=== PATIENT | male | born 1985 | race Caucasian/White ===

== ENCOUNTER 2018-02-28 21:25 | Emergency (ER) | payer SELFPAY ==
[~2018-02-28] VITALS: Wt 88.1 kg
[2018-02-28] MEDS ORDERED: morphine 4 MG/ML VIAL IV STA (21:58)
[2018-02-28] MEDS ORDERED: SOD CHLORIDE 0.9% 1,000 ML IV STA (21:58)
[2018-02-28] MEDS ORDERED: ONDANSETRON 4 MG INJ IV STA (21:58)
[2018-02-28] MEDS ORDERED: IOHEXOL 300MG/ML 150 ML BTL ONE (23:03)
[2018-02-28] MEDS ORDERED: SOD CHLORIDE 0.9% 100 ML ONE (23:03)
[2018-02-28] MEDS ORDERED: HYDR-4011 PO (23:40)
[2018-02-28] MEDS ORDERED: FAMO-96 PO (23:40)
--- NOTE | 2018-02-28 23:45 | ERD ---
ER Documentation Chief Complaint Chief Complaint RLQ PAIN X'S 3 DAYS HPI 32-year-old male presenting with right lower quadrant pain times 3 days. Patient had vomiting. No fevers. No medical problems.. Denies chest pain or shortness of breath. Has had no dysuria hematuria. Has never had abdominal pain like this before. No sick contacts. ROS All systems reviewed and are negative except as per history of present illness. 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 There are no rales, wheezes or r honchi. HEART: Regular rate and rhythm. No murmurs, clicks, rubs or gallops. No S3 or S4. ABDOMEN: Normal active bowel sounds. No distention. Mild to the right lower quadrant with no rebound tenderness. No organomegaly. : No erythema or tenderness of the testicles. No swelling. No masses felt with scrotal sac. Result Diagram: 02/28/18221402/28/182214 Results 24 hrs Laboratory Tests Test 02/28/18 22:15 White Blood Count 8.3 10^3/ul Red Blood Count 5.14 10^6/ul Hemoglobin 16.0 g/dl Hematocrit 47.5 % Mean Corpuscular Volume 92.4 fl Mean Corpuscular Hemoglobin 31.1 pg Mean Corpuscular Hemoglobin Concent 33.7 g/dl Red Cell Distribution Width 11.7 % Platelet Count 261 10^3/UL Mean Platelet Volume 10.2 fl Immature Granulocytes % 0.100 % Neutrophils % 55.9 % Lymphocytes % 30.2 % Monocytes % 9.8 % Eosinophils % 3.5 % Basophils % 0.5 % Nucleated Red Blood Cells % 0.0 /100WBC Immature Granulocytes # 0.010 10^3/ul Neutrophils # 4.6 10^3/ul Lymphocytes # 2.5 10^3/ul Monocytes # 0.8 10^3/ul Eosinophils # 0.3 10^3/ul Basophils # 0.0 10^3/ul Nucleated Red Blood Cells # 0.0 10^3/ul Urine Color YELLOW Urine Clarity CLEAR Urine pH 5.0 Urine Specific [place] 1.026 Urine Ketones NEGATIVE mg/dL Urine Nitrite NEGATIVE mg/dL Urine Bilirubin NEGATIVE mg/dL Urine Urobilinogen NEGATIVE mg/dL Urine Leukocyte Esterase TRACE Arlyn/ul Urine Microscopic RBC 0 /HPF Urine Microscopic WBC 1 /HPF Urine Mucus FEW /HPF Urine Hemoglobin NEGATIVE mg/dL Urine Glucose NEGATIVE mg/dL Urine Total Protein NEGATIVE mg/dl Sodium Level 142 mmol/L Potassium Level 4.0 mmol/L Chloride Level 103 mmol/L Carbon Dioxide Level 30 mmol/L Anion Gap 9 Blood Urea Nitrogen 14 mg/dl Creatinine 0.88 mg/dl Est Glomerular Filtrat Rate mL/min > 60 mL/min Glucose Level 118 mg/dl Calcium Level 10.1 mg/dl Total Bilirubin 0.2 mg/dl Direct Bilirubin 0.00 mg/dl Indirect Bilirubin 0.2 mg/dl Aspartate Amino Transf (AST/SGOT) 36 IU/L Alanine Aminotransferase (ALT/SGPT) 55 IU/L Alkaline Phosphatase 93 IU/L Total Protein 8.7 g/dl Albumin 4.9 g/dl Globulin 3.80 g/dl Albumin/Globulin Ratio 1.28 Lipase 89 U/L Current Medications Medications Dose Sig/Arlene Start Time Status Last (Trade) Ordered Route PRN Stop Time Admin Dose Reason Admin Sodium 1,000 ml @ Q1H STAT 02/28/18 DC 02/28/18 Chloride 1,000 mls/hr IV 21:58 22:15 02/28/18 22:57 Morphine 4 mg ONCE STAT 02/28/18 DC 02/28/18 Sulfate IV 21:58 22:15 (morphine) 02/28/18 21:59 Ondansetron 4 mg ONCE STAT 02/28/18 DC 02/28/18 HCl (Zofran IV 21:58 22:15 Inj) 02/28/18 21:59 Sodium 100 ml @ ud STK-MED 02/28/18 DC 02/28/18 Chloride ONCE .ROUTE 23:03 23:28 02/28/18 23:04 Iohexol 150 ml STK-MED 02/28/18 DC 02/28/18 (Omnipaque ONCE .ROUTE 23:03 23:28 300mg/ ml) 02/28/18 23:04 Procedures/MDM DIAGNOSTIC IMAGING REPORT Patient: RICKI SANDERSON : 1985 Age: 32 Sex: M MR #: [id number] DOS: 02/28/18 2158 Ordering MD: LATS CEJA PA-C Location: [facility] Room/Bed: PROCEDURE: CT Abdomen and Pelvis with IV contrast. CLINICAL INDICATION: Pain. TECHNIQUE: CT scan of the abdomen and pelvis was performed on a multidetector slice CT scanner. 100 cc of Omnipaque 300 intravenous contrast material was utilized. Sagittal and coronal reformatted images were obtained from the axial source images. Images were reviewed on a high-resolution PACS workstation. Exam CTDlvol = 14 mGy and DLP = 951 Gy-cm. One of the following 3 dose reduction techniques were used: Automated exposure control; adjustment of the mA and/or kV according to patient size; or use of iterative reconstruction technique. DICOM images are available. COMPARISON: None. FINDINGS: There is no bowel obstruction or ileus. The appendix is visualized and normal in size and appearance without evidence for appendicitis. There is a single sigmoid colon diverticulum without evidence for diverticulitis. There is no free fluid. The liver is enlarged measuring 18.6 cm length and mildly hypodense/fatty.. No intrahepatic lesions are identified. The gallbladder is normal in appearance. There is no definite biliary ductal dilation. Pancreas is normal in appearance. The spleen is unremarkable.. There are no adrenal masses. The aorta is normal caliber. Kidneys are normal in appearance without hydronephrosis, mass or calculus. There is no perinephric collection. Ureters are of normal caliber and without evidence for an obstructing calculus The urinary bladder is contracted with mild wall thickening... Limited evaluation lung bases demonstrates bibasilar atelectasis. The bones are unremarkable. IMPRESSION: 1. No evidence for appendicitis. 2. Single sigmoid colon diverticuli without evidence for diverticulitis. 3. No bowel obstruction or ileus. 4. No obstructive uropathy. Partially contracted urinary bladder with nonspecific wall thickening. A cystitis cannot be excluded. 5. Enlarged fatty liver. 6. Otherwise negative. ER course: 1 L normal saline given ED. Zofran and morphine given ED MDM: 32-year-old male presenting with abdominal pain. Patient CT scan is within normal blood work and urine is within normal limits. Patient is discharged stricter precautions. I have low suspicion. I have low suspicion for infectious etiology. Patient is told if symptoms change or worsen to return the ER immediately. Patient is recommended to follow-up with primary care within 1- 2 days for close evaluation. All questions answered at discharge Departure Diagnosis: Primary Impression: Abdominal pain Condition: Stable Patient Instructions: Abdominal Pain Referrals: [facility] YOU HAVE RECEIVED A MEDICAL SCREENING EXAM AND THE RESULTS INDICATE THAT YOU DO NOT HAVE A CONDITION THAT REQUIRES URGENT TREATMENT IN THE EMERGENCY DEPARTMENT. FURTHER EVALUATION AND TREATMENT OF YOUR CONDITION CAN WAIT UNTIL YOU ARE SEEN IN YOUR DOCTORS OFFICE WITHIN THE NEXT 1-2 DAYS. IT IS YOUR RESPONSIBILITY TO MAKE AN APPOINTMENT FOR FOLOW-UP CARE. IF YOU HAVE A PRIMARY DOCTOR --you should call your primary doctor and schedule an appointment IF YOU DO NOT HAVE A PRIMARY DOCTOR YOU CAN CALL OUR PHYSICIAN REFERRAL HOTLINE AT IF YOU CAN NOT AFFORD TO SEE A PHYSICIAN YOU CAN CHOSE FROM THE FOLLOWING [facility] [address] [facility] [address] [facility]. [facility] [address] [facility] [address] [facility] [facility] [address] [facility]. [facility]. [address] Additional Instructions: FOLLOW UP WITH YOUR PRIMARY CARE PHYSICIAN TOMORROW.Return to this facility if you are not improving as expected. MARIA LUISA CEJA PA-C Feb 28, 2018 23:45
[2018-03-01] VITALS: BP 125/75; PULSE 98; RESP 20
== END 2018-02-28 23:41 | disposition home or self-care (01) ==
LOC: FTE 21:25
DX: R10.31 Right lower quadrant pain (principal); F17.210 Nicotine dependence, cigarettes, uncomplicated; R11.10 Vomiting, unspecified
CPT/HCPCS: 74177; 80053; 81001; 83690; 85025; J2270; J2405; J7030; Q9967; 36415; 96374; 96375